=== PATIENT | male | born 1985 | race Caucasian/White ===

== ENCOUNTER 2017-01-04 11:18 | Emergency (ER) | payer SELFPAY ==
[2017-01-04 13:45] LABS: HEMOGLOBIN 15.5 gm/dl (14.0-17.5); RED BLOOD COUNT 4.81 M/UL (4.20-5.50); WHITE BLOOD COUNT 5.4 K/UL (4.5-11.0)
[2017-01-04 14:06] LABS: BUN/CREATININE RATIO 11 (0-10)
== END 2017-01-04 17:27 | disposition home or self-care (01) ==
LOC: ER1 11:18
PROVIDERS: Specialist/Technologist Athletic Trainer
DX: K60.2 Anal fissure, unspecified (principal); K64.9 Unspecified hemorrhoids; I10 Essential (primary) hypertension; F17.210 Nicotine dependence, cigarettes, uncomplicated; R73.9 Hyperglycemia, unspecified
CPT/HCPCS: 36415; 80053; 82272; 85025; 85610; 85730; 96360; 96361; 99284; G0480; J7050; Q9962

== ENCOUNTER 2022-03-21 18:06 | Emergency (ER) | payer OTHER ==
[~2022-03-21 18:06] MED LIST: ANUSOL HC SUPP1 SUPP PR; COLACE 100MG C100 MG PO; PRENATAL LOW I1 EACH PO
[2022-03-21 19:05] LABS: HEMOGLOBIN 15.2 gm/dl (14.0-17.5); RED BLOOD COUNT 4.86 M/UL (4.20-5.50); WHITE BLOOD COUNT 12.4 K/UL (4.5-11.0)
[2022-03-21 19:31] LABS: BUN/CREATININE RATIO 12 (0-10)
[2022-03-21] MEDS ORDERED: ZOFRAN ODT 4 MG4 MG PO (21:06)
== END 2022-03-21 21:15 | disposition home or self-care (01) ==
LOC: ER1 18:06
PROVIDERS: Emergency Medicine
DX: U07.1 COVID-19 (principal); E87.6 Hypokalemia; F41.9 Anxiety disorder, unspecified; R11.10 Vomiting, unspecified; F17.200 Nicotine dependence, unspecified, uncomplicated
CPT/HCPCS: 0240U; 80053; 81001; 83690; 83735; 84439; 84443; 85025; 99284